=== PATIENT | female | born 1940 | race Caucasian/White ===

== ENCOUNTER → 2022-04-28 | Outpatient (CLI) | payer MEDICARE, SELFPAY ==
[2022-04-28 12:58] LABS: ALB/GLOB Ratio 0.9 RATIO (0.9-2.4); AST(SGOT) 14 U/L (15-37); Alanine Aminotransfer ALT/SGPT 14 U/L (13-56); Albumin, Serum 3.1 g/dL (3.2-5.0); Alkaline Phosphatase 66 U/L (45-117); Anion Gap 4 (5-15); BUN 17 mg/dL (7-18); Calcium,Total 9.6 mg/dL (8.5-10.1); Chloride 108 mmol/L (98-107); Creatinine, Serum 0.71 mg/dL (0.55-1.02); EST Glomerular Filtration Rate 84 mL/min (>60); Est Glom Filt Rate - Afr Amer 102 mL/min (>60); Globulin 3.4 g/dL (2.2-4.2); Glucose 93 mg/dL (74-106); Magnesium 2.1 mg/dL (1.6-2.6); Potassium 4.1 mmol/L (3.5-5.1); Protein, Total 6.5 g/dL (6.4-8.2); Sodium Level 140 mmol/L (136-145)
== END | disposition home or self-care (01) ==
LOC: LABSPEC 11:30
PROVIDERS: PCP Family Medicine; Visit Provider Internal Medicine Hematology & Oncology
DX: C20 Malignant neoplasm of rectum (principal)
CPT/HCPCS: 80053; 83735

== ENCOUNTER 2022-05-01 10:36 | Emergency (ER) | payer MEDICARE, SELFPAY ==
[2022-05-01 10:37] VITALS: BP 144/75; PULSE 90; RESP 16; TEMP 36.7; O2SAT 99; BMI 24.2
--- NOTE | 2022-05-01 11:05 | EDS_ITS ---
HPI HPI - GI History of Present Illness Chief Complaint: Abd Pain Narrative Narrative: 81-year-old female presenting with constipation for about a week and a half. She states she has been trying lactulose which has not helped. This was prescribed to her by her heme-onc physician Dr. Winkler. Patient diagnosed a couple of weeks ago with rectal cancer diagnosed as adenocarcinoma which is poorly differentiated.She has been able to eat some. She states has had 2 rounds of chemotherapy. She is complaining of 7 of 10 left lower quadrant abdominal pain and rectal pain. She is not had a fever or chills. She does admit to nausea and vomiting. She has been able to eat some. She states has had 2 rounds of chemotherapy. [facility] Medical History (Updated 05/01/22 @ 11:21 by Anastasia Welsh RN) Colon cancer Home Medications acetaminophen 325 mg tablet (Tylenol) 160 mg PO Q6H PRN Pain 05/01/22 [History Last Taken Unknown] capecitabine 500 mg tablet 1,500 mg PO BID 05/01/22 [History Last Taken Unknown] dicyclomine 10 mg capsule 10 mg PO TID PRN cramping #20 caps 05/01/22 [Rx Last Taken Unknown] docusate sodium 100 mg capsule 1 cap PO BID 05/01/22 [History Last Taken Unknown] estradiol 1 applic vaginal QHS 05/01/22 [History Last Taken Unknown] lactulose 10 gram/15 mL oral solution (Constulose) 20 g PO BID 05/01/22 [History Last Taken Unknown] ondansetron 4 mg disintegrating tablet 4 mg PO Q8H PRN nausea and vomiting #14 tabs 05/01/22 [Rx Last Taken Unknown] Allergy/AdvReac Type Severity Reaction Status Date / Time No Known Allergies Allergy Verified 05/01/22 10:37 Surgical History (Updated 05/01/22 @ 11:21 by Anastasia Wlesh RN) Hx of tonsillectomy Social History Smoking Status: Never smoker ROS ROS ED Constitutional Constitutional ED: Denies chills or fever(s) ENT ENT ED: Denies rhinorrhea or sore throat Cardiovascular Cardiovascular: Denies chest pain or palpitations Respiratory/Chest Respiratory/Chest: Denies cough or dyspnea Gastrointestinal Gastrointestinal: Reports abdominal pain, constipation, nausea and vomiting Genitourinary Genitourinary ED: Denies dysuria or hematuria Musculoskeletal Musculoskeletal: Denies arthralgias or back pain Integumentary Denies abscess Neurologic Neurologic: Denies headache(s) or paresthesias Psychiatric Psychiatric: Denies anxiety or depression EXAM Physical Exam Const Vital Signs: 05/01/22 10:37 05/01/22 13:00 Temperature 98.1 F Temperature Source Temporal Pulse Rate 90 73 Respiratory Rate 16 16 Blood Pressure 144/75 H 125/76 H Blood Pressure Mean 98 92 Pulse Ox 99 96 Oxygen Delivery Method Room Air Room Air Positive well nourished General Appearance ED: NAD; Negative for pallor HEENT Reports moist mucous membranes normocephalic and atraumatic Eyes PERRL and EOMs intact bilaterally Resp normal respiratory effort and clear to auscultation bilaterally Cardio regular rate and regular rhythm GI Palpation: tender LLQ and LUQ Back/Spine no CVA tenderness Thoracic Spine / Upper Back: thoracic spinal tenderness Lumbar Spine / Lower Back: lumbar spinal tenderness Neuro CN's II-XII intact bilaterally Sensorium / Orientation: alert, oriented to person, oriented to place and oriented to time Psych mental status grossly normal and thought process normal Skin General Skin Exam: Negative for jaundice or pallor MDM MDM MDM Narrative Medical decision making narrative: Patient presenting with abdominal and has a diagnosis of rectal cancer. She initially stated to me that she had not had a bowel movement in a week and a half but after speaking with her she did state that she was having a lot of diarrhea. She has had 2 chemotherapy treatments and 2 radiation treatments. Her last radiation treatment was in this morning before arrival. Patient was given morphine and Zofran on arrival as well as IV fluids. CBC and CMP are unremarkable. Urinalysis negative for infection. On rectal exam there is no stool in the vault. I obtained a CT of the abdomen pelvis without contrast which shows mild obstruction in the rectosigmoid area. This is not complete. It is circumferential. I spoke with Dr. Oli Lama who stated that at this time since she had already had a biopsy by Dr. Jules and has a surgical follow-up that he would recommend that she follow-up with him. I did speak with Dr. Winkler regarding the blood work and imaging and he felt strongly that the patient's tumor would likely shrink with radiation and chemotherapy and wanted to continue to try to do this care for her. He recommended putting her on Bentyl for home. She continue her laxatives if she needs them. Patient was given return precautions. Dr. Winkler states he will see her tomorrow for her office visit. Impression: 1. Constipation 2. Diarrhea 3. Rectal mass 4. Nausea/vomiting Lab Data Attestation: I reviewed the patient's lab results. Labs: Laboratory Results - last 24 hr 05/01/22 05/01/22 05/01/22 10:46 10:50 10:50 WBC 5.1 RBC 4.52 Hgb 11.4 L Hct 37.3 MCV 82.5 MCH 25.2 L MCHC 30.6 L RDW Std Deviation 52.4 H RDW Coeff of Abdirahman 18.6 H Plt Count 347 MPV 8.8 Immature Gran % (Auto) 0.600 Neut % (Auto) 71.4 H Lymph % (Auto) 11.4 L [place] % (Auto) 7.1 Eos % (Auto) 8.9 H Baso % (Auto) 0.6 Absolute Neuts (auto) 3.6 Absolute Lymphs (auto) 0.58 L Nucleated RBC % 0 Sodium 137 Potassium 3.9 Chloride 106 Carbon Dioxide 26.0 Anion Gap 5 BUN 12 Creatinine 0.77 Estim Creat Clear Calc 40.60 Est GFR (MDRD) Af Amer 92 Est GFR (MDRD) Non-Af 76 BUN/Creatinine Ratio 15.6 Glucose 104 Calcium 10.2 H Total Bilirubin 0.50 AST 16 ALT 10 L Alkaline Phosphatase 73 Total Protein 6.7 Albumin 3.2 Globulin 3.5 Albumin/Globulin Ratio 0.9 Lipase 120 Urine Color Yellow Urine Clarity Clear Urine pH 6.0 Ur Specific [place] 1.015 Urine Protein Negative Urine Glucose (UA) Normal Urine Ketones Negative Urine Occult Blood 10 H Urine Nitrite Negative Urine Bilirubin Negative Urine Urobilinogen Normal Ur Leukocyte Esterase 500 H Urine RBC 0-5 SEEN Urine WBC 5-10 SEEN Ur Squamous Epith Cells 0-5 SEEN Urine Bacteria 0 SEEN Urine Mucus 0 SEEN Radiography Diagnostic Testing: Clinical Impression(s) from Imaging Studies Abdomen/Pelvis CT 05/01/22 11:21 IMPRESSION: Suspected circumferential mass in the rectosigmoid colon with mild obstruction and mild dilatation of the more proximal sigmoid colon. Clinical correlation and endoscopy would be useful. Electronically Signed: Ricci Hernandez MD at 12:24 EDT , Discharge Plan Triage Chief Complaint: Abd Pain ED Provider: Emmanuel Clark Dx/Rx/DC Orders Instructions: ED Constipation (Adult) Prescriptions: New dicyclomine 10 mg capsule 10 mg PO TID PRN (Reason: cramping) Qty: 20 0RF ondansetron 4 mg tablet,disintegrating 4 mg PO Q8H PRN (Reason: nausea and vomiting) Qty: 14 0RF No Action acetaminophen [Tylenol] 325 mg Tablet 160 mg PO Q6H PRN (Reason: Pain) capecitabine 500 mg Tablet 1,500 mg PO BID Rx Instructions: M-F the weeks of radiation. must administer with water 30 minutes after a meal docusate sodium 100 mg capsule 1 cap PO BID Label Comments: take 1 capsule by mouth twice a day estradiol 0.01 % (0.1 mg/gram) cream 1 applic VAGINAL QHS lactulose [Constulose] 10 gram/15 mL solution 20 g PO BID Label Comments: take 15 milliliters by mouth twice a day if needed Primary Care Provider: Jorge Dalton Referrals: Jorge Dalton DO [Primary Care Provider] - Misha Winkler DO [STAFF PHYSICIAN] - As soon as possible Disposition Disposition: Home, Self Care Discharge Date/Time: 05/01/22 13:28
[2022-05-01 11:12] LABS: Bacteria 0 SEEN /hpf (None Seen); Mucous, Urine 0 SEEN /hpf (<or=2+)
[2022-05-01] MEDS: Ondansetron 4 MG/2 ML Vial IV (11:12)
[2022-05-01] MEDS: 0.9% Normal Saline 1,000 ML 1000 ML IV (11:12)
[2022-05-01] MEDS: Morphine 4 MG/ML Syringe IV (11:12)
[2022-05-01 11:15] LABS: Absolute Lymphocyte Count 0.58 X10^3/uL (0.83-4.51); Absolute Neutrophil Count 3.6 X10^3/uL (2.0-7.7); Basophil# 0.03 X10^3/uL; Basophil% 0.6 % (0-1); Eosinophil# 0.45 X10^3/uL; Eosinophils% 8.9 % (0-5); Hematocrit 37.3 % (37-47); Hemoglobin 11.4 g/dL (12.0-15.0); Lymphocyte # 0.58 X10^3/ul (0.83-4.51); Lymphocyte % 11.4 % (19-41); Mean Corp Hgb Conc 30.6 g/dL (32-36); Mean Corpuscular Hgb 25.2 pg (27.0-32.0); Mean Corpuscular Volume 82.5 fL (81-99); Mean Platelet Vol. 8.8 fl (6.2-12.0); Monocyte# 0.36 X10^3/uL; Monocyte% 7.1 % (0-10); NRBC Flagged by Analyzer 0 % (0-5); Neutrophil # 3.63 X10^3/uL (2.7-7.7); Neutrophil % 71.4 % (47-70); POSITIVE DIFFERENTIAL YES; Platelet Count 347 K/mm3 (150-450); RBC Distribution Width CV 18.6 % (11.6-14.6); RBC Distribution Width SD 52.4 fl (35.1-43.9); Red Blood Count 4.52 M/mm3 (4.2-5.4); White Blood Count 5.1 K/mm3 (4.4-11.0)
[2022-05-01 11:16] LABS: Color, Urine Yellow (Yellow); Glucose, Dipstick Normal (Normal); Ketone-Dipstick Negative (Negative); Leukocyte Esterase-Dipstick 500 /ul (Negative); Nitrite-Dipstick Negative (Negative); Occult Blood-Urine 10 /ul (Negative); Protein-Dipstick Negative (Negative); Specific Gravity, Urine 1.015 (1.002-1.030); Urine Bilirubin Dipstick Negative (Negative); Urine Clarity Clear (Clear); Urine Urobilinogen Normal (Normal)
[2022-05-01 11:17] LABS: Differential Indicated SCAN CRITERIA MET
--- NOTE | 2022-05-01 11:21 | CT_ITS ---
STUDY: CT ABDOMEN AND PELVIS WITHOUT CONTRAST REASON FOR EXAM: Female, 81 years old. Pain RADIATION DOSAGE (If Supplied By Facility): CTDIvol = ( 8.59 ) mGy, DLP = ( 427.12 ) mGycm TECHNIQUE: Transaxial images were obtained from the dome of the diaphragm to the symphysis pubis without oral contrast, and without intravenous contrast. Sagittal and coronal images were reconstructed. Individualized dose optimization techniques were used for this CT. COMPARISON: None. FINDINGS: The visualized lung bases are unremarkable. The visualized portions of the heart are within normal limits. Normal liver. Normal gallbladder and extrahepatic biliary system. Normal spleen. Normal pancreas. Normal bilateral adrenal glands. 4 cm cyst in the upper pole right kidney. 3.5 cm cyst lower pole left kidney appear Normal visualized stomach. Normal small intestine. Circumferential wall thickening in the rectosigmoid colon with mild dilatation of the more proximal sigmoid colon with stranding of the surrounding fat worrisome for obstructing mass and clinical correlation is recommended. Endoscopy may be useful. There is non-visualization of the appendix. Normal abdominal aorta. Normal inferior vena cava. Normal retroperitoneum. Normal urinary bladder. Normal abdominal wall. Mild dextroscoliosis of the lumbar spine with degenerative disc disease. Status post left hip arthroplasty which produces streak artifact and obscures the pelvis. CT/Abdomen/Pelvis without Cont IMPRESSION: Suspected circumferential mass in the rectosigmoid colon with mild obstruction and mild dilatation of the more proximal sigmoid colon. Clinical correlation and endoscopy would be useful. Electronically Signed: Ricci Hernandez MD at 12:24 EDT ,
[2022-05-01 11:32] LABS: ALB/GLOB Ratio 0.9 RATIO (0.9-2.4); AST(SGOT) 16 U/L (15-37); Alanine Aminotransfer ALT/SGPT 10 U/L (13-56); Albumin, Serum 3.2 g/dL (3.2-5.0); Alkaline Phosphatase 73 U/L (45-117); Anion Gap 5 (5-15); BUN 12 mg/dL (7-18); BUN/Creat Ratio 15.6 RATIO (10-20); Calcium,Total 10.2 mg/dL (8.5-10.1); Chloride 106 mmol/L (98-107); Creatinine, Serum 0.77 mg/dL (0.55-1.02); EST Glomerular Filtration Rate 76 mL/min (>60); Est Glom Filt Rate - Afr Amer 92 mL/min (>60); Globulin 3.5 g/dL (2.2-4.2); Glucose 104 mg/dL (74-106); Lipase 120 U/L (73-393); Potassium 3.9 mmol/L (3.5-5.1); Protein, Total 6.7 g/dL (6.4-8.2); Sodium Level 137 mmol/L (136-145)
[2022-05-01 11:34] LABS: Red Blood Cells-Urine 0-5 SEEN /hpf (0-5); Squamous Epithelial Cells - UA 0-5 SEEN /hpf (5-10); White Blood Cells 5-10 SEEN /hpf (0-5)
[2022-05-01 13:00] VITALS: BP 125/76; PULSE 73; RESP 16; O2SAT 96
[2022-05-01] MEDS: Dicyclomine 10 MG Capsule 20 MG PO (13:18)
== END 2022-05-01 13:28 | disposition home or self-care (01) ==
PROVIDERS: Emergency Provider Student in an Organized Health Care Education/Training Program; PCP Family Medicine; Visit Provider Student in an Organized Health Care Education/Training Program
DX: K59.00 Constipation, unspecified (principal); C20 Malignant neoplasm of rectum; R19.7 Diarrhea, unspecified; R11.2 Nausea with vomiting, unspecified; Z79.899 Other long term (current) drug therapy
CPT/HCPCS: 74176; 80053; 81001; 83690; 85025; 96361; 96374; 96375; 99284; J7030; A4216; J2405

== ENCOUNTER 2022-06-12 16:40 | Emergency (ER) | payer MEDICARE, SELFPAY ==
[2022-06-12 16:41] VITALS: BP 118/47; PULSE 90; RESP 16; TEMP 36.7; O2SAT 99; BMI 23.2
--- NOTE | 2022-06-12 17:12 | EDS_ITS ---
HPI <POWER Landin - Last Filed: 06/12/22 18:58> History of Present Illness Chief Complaint: Abd Pain Narrative Narrative: 81-year-old female with history of rectal cancer, rectal tumor who is currently receiving radiation, chemotherapy presents to the emergency department for constipation, rectal pain. Patient states that she has not had a bowel movement 4 days, she has severe pain to her rectal area, she is not sure if the tumor is getting bigger or getting smaller. She denies any fevers however states to have chills and some sweats. She continues to use her laxatives, Dulcolax however nothing is helping. Patient does take Tylenol at home which is not helping her pain. She denies any blood in stool. She does complain of urinary burning. Patient's last chemotherapy, radiation was 2 weeks ago. She has not received repeat imaging to see if the tumor has decreased in size. [facility] <POWER Landin - Last Filed: 06/12/22 18:58> [facility] Medical History (Updated 06/12/22 @ 19:[address] Jessica Coe, ) Colon cancer Home Medications acetaminophen 325 mg tablet (Tylenol) 160 mg PO Q6H PRN Pain 05/01/22 [History Last Taken Unknown] capecitabine 500 mg tablet 1,500 mg PO BID 05/01/22 [History Last Taken Unknown] dicyclomine 10 mg capsule 10 mg PO TID PRN cramping #20 caps 05/01/22 [Rx Last Taken Unknown] docusate sodium 100 mg capsule 1 cap PO BID 05/01/22 [History Last Taken Unknown] estradiol 0.01% (0.1 mg/gram) vaginal cream 1 applic vaginal QHS 05/01/22 [History Last Taken Unknown] lactulose 10 gram/15 mL oral solution (Constulose) 20 g PO BID 05/01/22 [History Last Taken Unknown] ondansetron 4 mg disintegrating tablet 4 mg PO Q8H PRN nausea and vomiting #14 tabs 05/01/22 [Rx Last Taken Unknown] hydrocodone-acetaminophen 5-325mg 5mg-325mg 1 tab PO Q4H PRN PRN Pain 2 days #14 TABLETS 06/12/22 [Rx Last Taken Unknown] Allergy/AdvReac Type Severity Reaction Status Date / Time No Known Allergies Allergy Verified 06/12/22 16:43 Surgical History Hx of tonsillectomy Social History Smoking Status: Never smoker ROS <POWER Landin - Last Filed: 06/12/22 18:58> ROS ED ROS Narrative Constitutional: Negative for fever, chills, weight loss, weakness Eyes: Negative for vision loss, vision change, double vision ENT: Negative for any sore throat, ear pain, congestion Cardiovascular: Negative for any chest pain, tightness, palpitations Respiratory: Negative for any cough, sputum production, hemoptysis, dyspnea, dyspnea on exertion, orthopnea Gastrointestinal: Negative for any abdominal pain, nausea, vomiting, diarrhea, blood in stool, blood in vomit. Positive for rectal pain, constipation : Negative for any urinary frequency, dysuria, retention, blood in urine Muscle skeletal: Negative for any muscle joint pain, stiffness, myalgias, arthralgias, neck pain, back pain Neurological: Negative for any headache, syncope, numbness or tingling, dizziness Skin: Negative for any rashes, lumps, itching, abrasions, lacerations Psychiatric: Negative for any depression, anxiety, stress, suicidal ideation, homicidal ideation Hematologic: Negative for any easy bruising, excessive bruising, easy bleeding Allergies: Negative for any eczema, hives, rash EXAM <POWER Landin - Last Filed: 06/12/22 18:58> Physical Exam Narrative Exam Narrative: Vital signs reviewed. HEET: Head normocephalic atraumatic, TMs clear bilaterally. Posterior pharynx is clear, moist mucous membranes. Nares clear bilaterally. Neck: Supple with no lymphadenopathy or tenderness. No signs of meningismus, negative jolt sign. Cardiac: Regular rate and rhythm no murmurs gallops or rubs, equal peripheral pulses bilaterally. Respiratory: Lungs clear to auscultation bilaterally. No chest tenderness. Abdomen: Soft, nontender, nondistended. No abdominal bruit or pulsatile masses. No hepatosplenomegaly Extremities: No peripheral edema, no signs of gross trauma or deformity. Active full range of motion of all extremities. Neuro: Cranial nerves II through XII intact, no focal neurological deficits. Skin: Clean dry and intact with no rash, purpura, petechiae, vesicles or pustules. Backs/flank: No CVA tenderness, no midline spinal tenderness, no deformity. Psych: Normal mood and affect. No SI, HI or acute psychosis. Rectal: Rectal exam completed with female nurse national park tour guide. On external exam, patient has skin breakdown throughout the rectal perineum area. Patient does have hemorrhoids throughout her rectum no active bleeding. Patient has minimal stool in the rectal vault, there is pain on palpation. The hemorrhoids are not thrombosed, not actively bleeding however the unable to be placed back into the rectum. This cause the patient discomfort. Const Vital Signs: 06/12/22 16:41 Temperature 98.1 F Temperature Source Temporal Pulse Rate 90 Respiratory Rate 16 Blood Pressure 118/47 L Blood Pressure Mean 70 Pulse Ox 99 Oxygen Delivery Method Room Air <Dr. Jessica Coe DO - Last Filed: 06/12/22 19:53> Physical Exam Const Vital Signs: 06/12/22 16:41 Temperature 98.1 F Temperature Source Temporal Pulse Rate 90 Respiratory Rate 16 Blood Pressure 118/47 L Blood Pressure Mean 70 Pulse Ox 99 Oxygen Delivery Method Room Air MDM <POWER Landin - Last Filed: 06/12/22 18:58> [facility] Lab Data Labs: Laboratory Results - last 24 hr 06/12/22 06/12/22 17:10 17:10 WBC 3.1 L RBC 3.78 L Hgb 10.2 L Hct 32.8 L MCV 86.8 MCH 27.0 MCHC 31.1 L RDW Std Deviation 66.9 H RDW Coeff of Abdirahman 21.1 H Plt Count 232 MPV 9.0 Immature Gran % (Auto) 0.300 Neut % (Auto) 75.1 H Lymph % (Auto) 9.9 L [place] % (Auto) 13.1 H Eos % (Auto) 1.0 Baso % (Auto) 0.6 Absolute Neuts (auto) 2.3 Absolute Lymphs (auto) 0.31 L Nucleated RBC % 0 Differential Comment SCANNED Sodium 140 Potassium 4.0 Chloride 107 Carbon Dioxide 27.0 Anion Gap 6 BUN 13 Creatinine 0.86 Estim Creat Clear Calc 47.21 Est GFR (MDRD) Af Amer 81 Est GFR (MDRD) Non-Af 67 BUN/Creatinine Ratio 15.2 Glucose 102 Calcium 9.1 Radiography Diagnostic Testing: Clinical Impression(s) from Imaging Studies Abdomen/Pelvis CT 06/12/22 19:12 IMPRESSION: (NOT LISTED IN ORDER OF SIGNIFICANCE) Diffuse rectal wall thickening and inflammation suggesting colitis. Underlying Mass is difficult to exclude. Recommend repeat study once therapy is completed to exclude a mass. Other findings as above. Electronically Signed: Bear Mcneil MD at 19:28 EDT Reading Location ID and State: [facility] / [place] , Service support , Treatment and Re-Evaluation Narrative: Patient presents to the emergency department with complaints of rectal pain, abdominal pain, constipation. Patient appears to be in mild discomfort secondary to rectal pain, however patient's vital signs are stable she looks nontoxic. Patient has rectal skin injury from the radiation, she did receive a full abdominal work-up. Patient's CBC shows a leukopenia with a white blood co unt 3.1, patient's hemoglobin is 10.2, chemistries were grossly unremarkable. Due to the patient's history of rectal tumor, rectal cancer, patient will receive a CT scan of the abdomen pelvis with IV contrast as well as p.o. contrast. Patient was given IV morphine, IV Zofran, IV fluids. <Dr. Jessica Coe, DO - Last Filed: 06/12/22 19:53> [facility] Narrative Medical decision making narrative: I have personally performed a face to face assessment of the patient and have reviewed the JAKOB Note. I performed a substantive portion of the visit including all aspects of the following. My duron findings include: History is [patient presents to the emergency department complaint of rectal pain and constipation. Patient states she has history of rectal cancer and has had 5 weeks of chemo and radiation that she finished 2 weeks ago. Patient states she has not been able have a bowel movement despite sitting on the toilet and pushing. Denies significant abdominal pain. Patient denies fevers. She denies urinary symptoms. She does have history of hemorrhoids.] Exam is [HEENT-PERRLA, EOMI. Cranial nerves II through XII grossly intact. TMs clear. Mucous membranes moist. No adenopathy. Cardiovascular-regular rate and rhythm without murmur or ectopy Lungs-clear to auscultation, chest wall stable without crepitus or subcu emphysema Abdomen-normoactive bowel sounds, soft, nontender, no rebound or rigidity, no peritoneal signs. 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 She has hemorrhoids diffusely that are tender to palpation. No active bleeding noted. Extremities-intact ?4, normal range of motion, normal pulses, atraumatic] Medical Decison Making [patient CT scan showed thickening of the rectum which is consistent with her disease. She had moderate stool throughout the colon. There is no evidence of bowel obstruction. Lab work-up was unremarkable. Patient did receive 4 mg of morphine and 4 mg of Zofran IV. At this point I discussed case with her oncologist Dr. Misha Winkler who will contact her tomorrow. I believe her discomfort is mostly related to the radiation espinosa and hemorrhoids. Patient will be given [place] for pain and advised on warm sits baths. She will be advised to use MiraLAX.] Other additions or changes: [None] Lab Data Labs: Laboratory Results - last 24 hr 06/12/22 06/12/22 17:10 17:10 WBC 3.1 L RBC 3.78 L Hgb 10.2 L Hct 32.8 L MCV 86.8 MCH 27.0 MCHC 31.1 L RDW Std Deviation 66.9 H RDW Coeff of Abdirahman 21.1 H Plt Count 232 MPV 9.0 Immature Gran % (Auto) 0.300 Neut % (Auto) 75.1 H Lymph % (Auto) 9.9 L [place] % (Auto) 13.1 H Eos % (Auto) 1.0 Baso % (Auto) 0.6 Absolute Neuts (auto) 2.3 Absolute Lymphs (auto) 0.31 L Nucleated RBC % 0 Differential Comment SCANNED Sodium 140 Potassium 4.0 Chloride 107 Carbon Dioxide 27.0 Anion Gap 6 BUN 13 Creatinine 0.86 Estim Creat Clear Calc 47.21 Est GFR (MDRD) Af Amer 81 Est GFR (MDRD) Non-Af 67 BUN/Creatinine Ratio 15.2 Glucose 102 Calcium 9.1 Radiography Diagnostic Testing: Clinical Impression(s) from Imaging Studies Abdomen/Pelvis CT 06/12/22 19:12 IMPRESSION: (NOT LISTED IN ORDER OF SIGNIFICANCE) Diffuse rectal wall thickening and inflammation suggesting colitis. Underlying Mass is difficult to exclude. Recommend repeat study once therapy is completed to exclude a mass. Other findings as above. Electronically Signed: Bear Mcneil MD at 19:28 EDT , Discharge Plan Triage Chief Complaint: Abd Pain ED Midlevel Provider: Misha Knight ED Provider: Jessica Coe Dx/Rx/DC Orders Clinical Impression: Pain, rectal, Radiation burn, Hemorrhoids Instructions: ED Hemorrhoids Prescriptions: New hydrocodone-acetaminophen [hydrocodone-acetaminophen] 5-325 mg tablet 1 tab PO Q4H PRN PRN (Reason: Pain) 2 Days Qty: 14 0RF No Action acetaminophen [Tylenol] 325 mg Tablet 160 mg PO Q6H PRN (Reason: Pain) capecitabine 500 mg Tablet 1,500 mg PO BID Rx Instructions: M-F the weeks of radiation. must administer with water 30 minutes after a meal docusate sodium 100 mg capsule 1 cap PO BID Label Comments: take 1 capsule by mouth twice a day estradiol 0.01 % (0.1 mg/gram) cream 1 applic VAGINAL QHS lactulose [Constulose] 10 gram/15 mL solution 20 g PO BID Label Comments: take 15 milliliters by mouth twice a day if needed dicyclomine 10 mg capsule 10 mg PO TID PRN (Reason: cramping) Qty: 20 0RF ondansetron 4 mg tablet,disintegrating 4 mg PO Q8H PRN (Reason: nausea and vomiting) Qty: 14 0RF Primary Care Provider: Jorge Dalton Referrals: Jorge Dalton DO [Primary Care Provider] - Misha Winkler DO [Med Staff - Active Staff] - 1-2 Days if not improving Disposition Disposition: Home, Self Care
[2022-06-12] MEDS: Morphine 4 MG/ML Syringe IV (17:14)
[2022-06-12] MEDS: Ondansetron 4 MG/2 ML Vial IV (17:14)
[2022-06-12] MEDS: 0.9% Normal Saline 1,000 ML 1000 ML IV (17:14)
[2022-06-12 17:32] LABS: Absolute Lymphocyte Count 0.31 X10^3/uL (0.83-4.51); Absolute Neutrophil Count 2.3 X10^3/uL (2.0-7.7); Anion Gap 6 (5-15); BUN 13 mg/dL (7-18); BUN/Creat Ratio 15.2 RATIO (10-20); Basophil# 0.02 X10^3/uL; Basophil% 0.6 % (0-1); Calcium,Total 9.1 mg/dL (8.5-10.1); Chloride 107 mmol/L (98-107); Creatinine, Serum 0.86 mg/dL (0.55-1.02); EST Glomerular Filtration Rate 67 mL/min (>60); Eosinophil# 0.03 X10^3/uL; Est Glom Filt Rate - Afr Amer 81 mL/min (>60); Estimated Creatinine Clearance 47.21 ml/min; Glucose 102 mg/dL (74-106); Hematocrit 32.8 % (37-47); Hemoglobin 10.2 g/dL (12.0-15.0); Lymphocyte # 0.31 X10^3/ul (0.83-4.51); Lymphocyte % 9.9 % (19-41); Mean Corp Hgb Conc 31.1 g/dL (32-36); Mean Corpuscular Volume 86.8 fL (81-99); Monocyte# 0.41 X10^3/uL; Monocyte% 13.1 % (0-10); NRBC Flagged by Analyzer 0 % (0-5); Neutrophil # 2.34 X10^3/uL (2.7-7.7); Neutrophil % 75.1 % (47-70); POSITIVE DIFFERENTIAL YES; POSITIVE MORPHOLOGY YES; Platelet Count 232 K/mm3 (150-450); RBC Distribution Width CV 21.1 % (11.6-14.6); RBC Distribution Width SD 66.9 fl (35.1-43.9); Red Blood Count 3.78 M/mm3 (4.2-5.4); Sodium Level 140 mmol/L (136-145); White Blood Count 3.1 K/mm3 (4.4-11.0)
[2022-06-12 17:33] LABS: Differential Indicated SCAN CRITERIA MET
[2022-06-12 18:00] LABS: Differential Comment SCANNED
[2022-06-12 18:40] VITALS: RESP 16
--- NOTE | 2022-06-12 19:12 | CT_ITS ---
STUDY: CT Abdomen And Pelvis W/ Contrast Injection 06/12/2022 7:25 PM REASON FOR EXAM: Female, 81 years old. ABDOMINAL PAIN Constipation, rectal pain -- IV PO Contrast TECHNIQUE: Transaxial images were obtained with oral contrast, and IV Gastrografin and amp; 100mL Isovue-300 intravenous contrast. Individualized dose optimization techniques were used for this CT. COMPARISON: None. FINDINGS: The visualized lung bases are unremarkable. The visualized portions of the heart are within normal limits. Unremarkable liver. Unremarkable gallbladder and extrahepatic biliary system. There are multiple benign calcified granulomata of the spleen. Unremarkable pancreas. Unremarkable bilateral adrenal glands. There are hypodensities in the right kidney. These are consistent for cysts. No follow up required. There are hypodensities in the left kidney. These are consistent for cysts. No follow up required. Unremarkable visualized stomach. Unremarkable small intestine. Stool throughout the colon. Diffuse rectal wall thickening and inflammation suggesting colitis. The appendix is visualized and appears unremarkable. Degenerative findings of the hips. There are no acute fin dings of the abdominal aorta. Unremarkable inferior vena cava. Subcentimeter mesenteric lymph nodes. Unremarkable urinary bladder. There is atrophy of the uterus. The uterus is lobulated in contour. There are multiple partially calcified masses in the uterus. This is consistent for a fibroid/ myomatous uterus. Pessary device noted in the vagina. Vacuum disc phenomenon. Unremarkable abdominal wall. There are diffuse degenerative changes of the visualized lumbar spine. Total left hip arthroplasty. CT/Abdomen/Pelvis WITH Contrast IMPRESSION: (NOT LISTED IN ORDER OF SIGNIFICANCE) Diffuse rectal wall thickening and inflammation suggesting colitis. Underlying Mass is difficult to exclude. Recommend repeat study once therapy is completed to exclude a mass. Other findings as above. Electronically Signed: Bear Mcneil MD at 19:28 EDT ,
[2022-06-12 19:47] VITALS: RESP 16
[2022-06-13 13:15] LABS: Pathologist Review Reviewed
== END 2022-06-12 20:03 | disposition home or self-care (01) ==
PROVIDERS: Nurse Practitioner; Emergency Provider Emergency Medicine; PCP Family Medicine; Visit Provider Emergency Medicine
DX: L59.8 Other specified disorders of the skin and subcutaneous tissue related to radiation (principal); C20 Malignant neoplasm of rectum; Z79.899 Other long term (current) drug therapy; K64.8 Other hemorrhoids
CPT/HCPCS: 74177; 80048; 85025; 96361; 96374; 96375; 99283; J7030; Q9967; A4216; J2405